=== PATIENT | female | born 1945 | race Caucasian/White ===

== ENCOUNTER → 2016-05-30 | Outpatient (CLI) | payer MEDICARE, BC ==
[~2016-05-30] MED LIST: Gadobutrol 10 mMOL/10 ML SDV IVPUSH STA
--- NOTE | 2016-05-31 15:51 | MR ---
EXAM DATE: 05/30/16 PATIENT'S AGE: 71 Patient: VANITA ESCALANTE Facility: [place], [place] Site . Site : 1945 Study: MRI Head W/ and W/O Cont [id number] 6:12:13 PM Ordering Physician: Rafael Blanco Final Report: Indication: Headache and dizziness. Comparison: CT 05/01/2016. Technique: Multiplanar T1, T2, FLAIR and diffusion-weighted imaging. Post gadolinium T2 weighted sequences. Findings: Motion artifact. Normal brain parenchymal morphology. Few scattered patchy T2/FLAIR signal hyperintensity within the white matter which most likely represent small vessel ischemic changes. No intracranial hemorrhage. No abnormal ventricular dilatation. Intracranial vascular flow voids are preserved. No mass or mass effect. No midline shift. No restricted diffusion to suggest acute ischemia. No susceptibility artifact to suggest hemosiderin of remote hemorrhage. No abnormal enhancement or enhancing lesions. Bilateral orbits are unremarkable. Normal appearing sella. Visualized paranasal sinuses are unremarkable. Small bilateral mastoid effusions. Impression: 1. Motion artifact 2. No acute intracranial abnormality. 3. Normal brain parenchymal morphology. Chronic deep white matter small vessel ischemic changes. 4. No abnormal enhancement or enhancing lesions 5. Small bilateral mastoid effusions Dictated by Gil Anguiano MD @ May 31 2016 8:53AM (Electronic Signature) Report Signed by Proxy and Original Signed Document filed in the Medical Record. [facility]
== END ==
LOC: MW.MRI 16:12
PROVIDERS: ATTEND Family Medicine
DX: R51 Headache (principal); R42 Dizziness and giddiness; H74.8X3 Other specified disorders of middle ear and mastoid, bilateral
CPT/HCPCS: 70553; A9585

== ENCOUNTER 2016-07-26 10:36 | Inpatient (IN) | payer MEDICARE, BC ==
[2016-07-26] MEDS ORDERED: Sodium Chloride 0.9% 1,000 ML IV ONE (10:58)
[2016-07-26] MEDS ORDERED: Levofloxacin/Dextrose 5%-Water 750 MG in Premix Bag 1 BAG IV ONE (10:58)
[2016-07-26] MEDS ORDERED: Sodium Chloride 0.9% 2.5 ML Syringe FLUSH PRN (10:58)
[2016-07-26] MEDS ORDERED: Sodium Chloride 0.9% 10 ML Syringe FLUSH PRN (10:58)
--- NOTE | 2016-07-26 11:16 | EDM.PDOC ---
ED HISTORY OF PRESENT ILLNESS - General Chief Complaint: Respiratory Problem Stated Complaint: DIZZY Time Seen by Provider: 07/26/16 10:55 - History of Present Illness INITIAL COMMENTS - FREE TEXT/NARRATIVE: HISTORY AND PHYSICAL: History of present illness: Patient 71-year-old white female with a concern of fever and cough worse over the last several days she has some upper back pain with this particularly with coffee she denies chest pain denies nausea vomiting denies other concern. Review of systems: As per history of present illness and below otherwise all systems reviewed and negative. Past medical history: As per history of present illness and as reviewed below otherwise noncontributory. Surgical history: As per history of present illness and as reviewed below otherwise noncontributory. Social history: No reported history of drug or alcohol abuse. Family history: As per history of present illness and as reviewed below otherwise noncontributory. Physical exam: HEENT: Atraumatic, normocephalic, pupils reactive, negative for conjunctival pallor or scleral icterus, mucous membranes moist, throat clear, neck supple, nontender, trachea midline. Lungs: Coarse bilaterally slightly diminished breath sounds equal bilaterally, chest nontender. Heart: S1S2, regular, negative for clicks, rubs, or JVD. Abdomen: Soft, nondistended, nontender. Negative for masses or hepatosplenomegaly. Negative for costovertebral tenderness. Pelvis: Stable nontender. Genitourinary: Deferred. Rectal: Deferred. Extremities: Atraumatic, negative for cords or calf pain. Neurovascular unremarkable. Neuro: Awake, alert, oriented. Cranial nerves II through XII unremarkable. Cerebellum unremarkable. Motor and sensory unremarkable throughout. Exam nonfocal. Diagnostics: CBC CMP troponin chest x-ray blood culture x2 lactic acid influenza screen UA urine culture Therapeutics: IV O2 monitor Levaquin 750 mg IV Impression: #1 pneumonitis #2 fever #3 dyspnea Definitive disposition and diagnosis as appropriate pending reevaluation and review of above. - Related Data Allergies/ADRs: Allergies Allergy/AdvReac Type Severity Reaction Status Date / Time cephalexin monohydrate Allergy Vomiting Verified 07/26/16 12:08 [From Keflex] doxycycline Allergy Acid Reflux Verified 07/26/16 12:08 hydrocodone Allergy Vomiting Verified 07/26/16 12:08 ibuprofen Allergy Hives Verified 07/26/16 12:08 levofloxacin Allergy Nausea and Verified 07/26/16 12:08 Vomiting meloxicam Allergy Other Verified 07/26/16 12:08 Penicillins Allergy Tachycardia Verified 07/26/16 12:08 tramadol Allergy Vomiting Verified 07/26/16 12:08 Hydrocodone/acetaminophen Allergy Vomiting Uncoded 05/01/16 05:00 Home Meds: Home Meds Aspirin [Halfprin] 81 mg PO DAILY 12/15/15 [History] Lisinopril/Hydrochlorothiazide [Lisinopril-Hctz 10-12.5 mg Tab] 1 tab PO ACBREAKFAST 12/15/15 [History] Metoprolol Succinate [Toprol XL] 25 mg PO ACBREAKFAST 12/15/15 [History] Tiotropium Br/Olodaterol HCl [Stiolto Respimat Inhal War] 1 inh INH ACBREAKFAST 12/15/15 [History] atorvaSTATin Calcium [Atorvastatin Calcium] 20 mg PO BEDTIME 12/15/15 [History] Glucosamine Sulfate 2KCl [Glucosamine] 1,000 mg PO DAILY 03/18/16 [History] cycloSPORINE [Restasis Multidose] 2 drop EYEBOTH DAILY 03/18/16 [History] Acetaminophen/oxyCODONE [Percocet 325-5 MG] 1 - 2 tab PO Q4H PRN #80 tablet [Rx] Past Medical History HEENT History: Reports: Allergic rhinitis, Other (see below) Other HEENT History: wears glasses, has upper denture Cardiovascular History: Reports: Heart murmur, High cholesterol, Hypertension, Other (see below) (able to walk up 2 flights of stairs. ekg sr, rbbb, rate=78) Respiratory History: Reports: COPD (took inhaler this morning. on HOME OXYGEN at home as needed. Able to sleep in the supine position. Was on steroids for her cough which was discontinued 3 weeks ago.), Other (see below) (cxr : "unremarkable") Other Respiratory History: 40 yr history of smoking QUIT 6 yrs ago Gastrointestinal History: Reports: GERD (controlled with medications.) Genitourinary History: Reports: None CASTING MOLDER History: Reports: None Musculoskeletal History: Reports: Back pain, chronic (lumbar disc disease, lumbar facet joint syndrome, lumbar spondylosis, spondyloisthesis. pain control 04/12.), Fracture, Osteoarthritis, RA, Other (see below) Other Musculoskeletal History: Spinal stenosis, hx of fx right ankle Neurological History: Reports: None Psychiatric History: Reports: None Endocrine/Metabolic History: Reports: None Hematologic History: Reports: None Immunologic History: Reports: None Oncologic (Cancer) History: Reports: None Dermatologic History: Reports: None - Infectious Disease History Infectious Disease History: Reports: Measles - Past Surgical History Head Surgeries/Procedures: Reports: None HEENT Surgical History: Reports: Cataract surgery, Tonsillectomy Cardiovascular Surgical History: Reports: Other (see below) Other Cardiovascular Surgeries/Procedures: Cardiac Catheterization Respiratory Surgical History: Reports: None GI Surgical History: Reports: Cholecystectomy, Other (see below) (parathyroid surgery) Other GI Surgeries/Procedures: Lap Cherrie Female Surgical History: Reports: Hysterectomy, Tubal ligation Endocrine Surgical History: Reports: Parathyroidectomy Neurological Surgical History: Reports: None Musculoskeletal Surgical History: Reports: Knee replacement, ORIF Other Musculoskeletal Surgeries/Procedures:: ORIF Right ARm, partial knee replacement (right) Oncologic Surgical History: Reports: Lumpectomy (breast) Dermatological Surgical History: Reports: None - History Comment History Comment: etoh "rarely" Social & Family History - Family History Family Medical History: Noncontributory - Tobacco Use Smoking Status *Q: Former Smoker (quit in 2009.) Years of Tobacco use: 40 Used Tobacco, but Quit: Yes Month Tobacco Last Used: quit 7 years ago Second Hand Smoke Exposure: No - Caffeine Use Caffeine Use: Reports: Coffee Caffeine Use Comment: 2cups/day - Alcohol Use Days Per Week of Alcohol Use: 0 Number of Drinks Per Day: 0 Total Drinks Per Week: 0 - Recreational Drug Use Recreational Drug Use: No Drug Use in Last 12 Months: No ED ROS GENERAL - Review of Systems Review Of Systems: ROS reveals no pertinent complaints other than HPI. ED EXAM, GENERAL - Physical Exam Exam: See Below (See dictation) Course - Vital Signs Last Recorded V/S: Last Vital Signs Temp 39.2 C H 07/26/16 12:02 Pulse 103 H 07/26/16 12:02 Resp 18 07/26/16 12:02 BP 157/76 H 07/26/16 12:02 Pulse Ox 87 L 07/26/16 12:02 - Orders/Labs/Meds Orders: Active Orders 24 hr Category Date Time Status Cardiac Monitoring [RC] . DIRECTED Care 07/26/16 10:58 Active EKG Documentation Completion [RC] STAT Care 07/26/16 10:58 Active Oxygen Therapy, ED [RC] ASDIRECTED Care 07/26/16 10:58 Active Pulse Oximetry [RC] ASDIRECTED Care 07/26/16 10:58 Active Chest 1V Frontal [CR] Stat Exams 07/26/16 10:58 Taken CULTURE BLOOD [BC] Stat Lab 07/26/16 11:14 Received CULTURE BLOOD [BC] Stat Lab 07/26/16 11:38 Received CULTURE URINE [RM] Stat Lab 07/26/16 10:58 Uncollected INFLUENZA A+B AG SCREEN [RM] Stat Lab 07/26/16 11:16 Uncollected UA W/MICROSCOPIC [URIN] Stat Lab 07/26/16 10:58 Uncollected Sodium Chloride 0.9% [Saline Flush] Med 07/26/16 10:58 Active 10 ml FLUSH ASDIRECTED PRN Sodium Chloride 0.9% [Saline Flush] Med 07/26/16 10:58 Active 2.5 ml FLUSH ASDIRECTED PRN Blood Culture x2 Reflex Set [OM.PC] Stat Oth 07/26/16 10:58 Ordered Saline Lock Insert [OM.PC] Stat Oth 07/26/16 10:58 Ordered Medication Orders Sodium Chloride (Saline Flush) 10 ml FLUSH ASDIRECTED PRN PRN Reason: Keep Vein Open Last Admin: 07/26/16 11:58 Dose: 10 ml Sodium Chloride (Saline Flush) 2.5 ml FLUSH ASDIRECTED PRN PRN Reason: Keep Vein Open Last Admin: 07/26/16 11:58 Dose: 2.5 ml Labs: Laboratory Tests 07/26/16 07/26/16 07/26/16 Range/Units 11:38 11:38 11:38 WBC 18.74 H (4.0-11.0) K/uL RBC 4.59 (4.30-5.90) M/uL Hgb 13.7 (12.0-16.0) g/dL Hct 42.8 (36.0-46.0) % MCV 93.2 (80.0-98.0) fL MCH 29.8 (27.0-32.0) pg MCHC 32.0 (31.0-37.0) g/dL RDW Std Deviation 49.7 (28.0-62.0) fl RDW Coeff of Bean 15 (11.0-15.0) % Plt Count 309 (150-400) K/uL MPV 10.50 (7.40-12.00) fL Neut % (Auto) 78.2 (48.0-80.0) % Lymph % (Auto) 6.5 L (16.0-40.0) % [place] % (Auto) 14.9 (0.0-15.0) % Eos % (Auto) 0.2 (0.0-7.0) % Baso % (Auto) 0.2 (0.0-1.5) % Neut # (Auto) 14.7 H (1.4-5.7) K/uL Lymph # (Auto) 1.2 (0.6-2.4) K/uL [place] # (Auto) 2.8 H (0.0-0.8) K/uL Eos # (Auto) 0.0 (0.0-0.7) K/uL Baso # (Auto) 0.0 (0.0-0.1) K/uL Nucleated RBC % 0.0 /100WBC Nucleated RBCs # 0 K/uL INR 1.01 (0.86-1.11) Lactate 1.3 (0.20-2.00) mmol/L Sodium (136-146) mmol/L Potassium (3.5-5.1) mmol/L Chloride (98-110) mmol/L Carbon Dioxide (21-31) mmol/L BUN (6.0-23.0) mg/dL Creatinine (0.6-1.5) mg/dL Est Cr Clr Drug Dosing mL/min Estimated GFR (MDRD) ml/min Glucose (60-110) mg/dL Calcium (8.8-10.8) mg/dL Total Bilirubin (0.1-1.5) mg/dL AST (5-40) IU/L ALT (8-54) IU/L Alkaline Phosphatase (40-150) Troponin I (0.0-0.29) NG/ML B-Natriuretic Peptide (<100) PG/ML Total Protein (6.0-8.0) g/dL Albumin (3.4-4.8) g/dL Globulin (2.0-3.5) g/dL Albumin/Globulin Ratio (1.3-2.8) 07/26/16 07/26/16 07/26/16 Range/Units 11:38 11:38 11:38 WBC (4.0-11.0) K/uL RBC (4.30-5.90) M/uL Hgb (12.0-16.0) g/dL Hct (36.0-46.0) % MCV (80.0-98.0) fL MCH (27.0-32.0) pg MCHC (31.0-37.0) g/dL RDW Std Deviation (28.0-62.0) fl RDW Coeff of Bean (11.0-15.0) % Plt Count (150-400) K/uL MPV (7.40-12.00) fL Neut % (Auto) (48.0-80.0) % Lymph % (Auto) (16.0-40.0) % [place] % (Auto) (0.0-15.0) % Eos % (Auto) (0.0-7.0) % Baso % (Auto) (0.0-1.5) % Neut # (Auto) (1.4-5.7) K/uL Lymph # (Auto) (0.6-2.4) K/uL [place] # (Auto) (0.0-0.8) K/uL Eos # (Auto) (0.0-0.7) K/uL Baso # (Auto) (0.0-0.1) K/uL Nucleated RBC % /100WBC Nucleated RBCs # K/uL INR (0.86-1.11) Lactate (0.20-2.00) mmol/L Sodium 140 (136-146) mmol/L Potassium 3.6 (3.5-5.1) mmol/L Chloride 104 (98-110) mmol/L Carbon Dioxide 22 (21-31) mmol/L BUN 23 (6.0-23.0) mg/dL Creatinine 1.3 (0.6-1.5) mg/dL Est Cr Clr Drug Dosing 37.48 mL/min Estimated GFR (MDRD) 40.2 ml/min Glucose 119 H (60-110) mg/dL Calcium 8.4 L (8.8-10.8) mg/dL Total Bilirubin 1.3 (0.1-1.5) mg/dL AST 26 (5-40) IU/L ALT 23 (8-54) IU/L Alkaline Phosphatase 132 (40-150) Troponin I < 0.10 (0.0-0.29) NG/ML B-Natriuretic Peptide 166 H (<100) PG/ML Total Protein 8.1 H (6.0-8.0) g/dL Albumin 3.9 (3.4-4.8) g/dL Globulin 4.2 H (2.0-3.5) g/dL Albumin/Globulin Ratio 0.9 L (1.3-2.8) Meds: Medications Generic Name Dose Route Start Last Admin Trade Name Freq PRN Reason Stop Dose Admin Sodium Chloride 10 ml 07/26/16 10:58 07/26/16 11:58 Saline Flush FLUSH 10 ml ASDIRECTED PRN Administration Keep Vein Open Sodium Chloride 2.5 ml 07/26/16 10:58 07/26/16 11:58 Saline Flush FLUSH 2.5 ml ASDIRECTED PRN Administration Keep Vein Open Discontinued Medications Generic Name Dose Route Start Last Admin Trade Name Freq PRN Reason Stop Dose Admin Levofloxacin/Dextrose 750 mg/ 150 mls @ 100 mls/hr 07/26/16 10:58 07/26/16 11 :58 Premix IV 07/26/16 12:27 100 mls/hr ONETIME ONE Administration Sodium Chloride 1,000 mls @ 999 mls/hr 07/26/16 10:58 07/26/16 11:57 Normal Saline IV 07/26/16 11:58 300 mls/hr STAT ONE Administration Ondansetron HCl 4 mg 07/26/16 12:00 07/26/16 12:05 Zofran IVPUSH 07/26/16 12:01 4 mg ONETIME ONE Administration Departure - Departure Time of Disposition: 12:36 Disposition: Admitted As Inpatient 64 Condition: good Clinical Impression: Pneumonia Referrals: Reagan Hall MD [Primary Care Provider] - Forms: ED Department Discharge - My Orders Last 24 Hours: My Active Orders 07/26/16 10:58 Cardiac Monitoring [RC] . DIRECTED EKG Documentation Completion [RC] STAT Oxygen Therapy, ED [RC] ASDIRECTED Pulse Oximetry [RC] ASDIRECTED Chest 1V Frontal [CR] Stat CULTURE URINE [RM] Stat UA W/MICROSCOPIC [URIN] Stat Sodium Chloride 0.9% [Saline Flush] 10 ml FLUSH ASDIRECTED PRN Sodium Chloride 0.9% [Saline Flush] 2.5 ml FLUSH ASDIRECTED PRN Blood Culture x2 Reflex Set [OM.PC] Stat Saline Lock Insert [OM.PC] Stat 07/26/16 11:14 CULTURE BLOOD [BC] Stat 07/26/16 11:16 INFLUENZA A+B AG SCREEN [RM] Stat 07/26/16 11:38 CULTURE BLOOD [BC] Stat - Assessment/Plan Last 24 Hours: My Active Orders 07/26/16 10:58 Cardiac Monitoring [RC] . DIRECTED EKG Documentation Completion [RC] STAT Oxygen Therapy, ED [RC] ASDIRECTED Pulse Oximetry [RC] ASDIRECTED Chest 1V Frontal [CR] Stat CULTURE URINE [RM] Stat UA W/MICROSCOPIC [URIN] Stat Sodium Chloride 0.9% [Saline Flush] 10 ml FLUSH ASDIRECTED PRN Sodium Chloride 0.9% [Saline Flush] 2.5 ml FLUSH ASDIRECTED PRN Blood Culture x2 Reflex Set [OM.PC] Stat Saline Lock Insert [OM.PC] Stat 07/26/16 11:14 CULTURE BLOOD [BC] Stat 07/26/16 11:16 INFLUENZA A+B AG SCREEN [RM] Stat 07/26/16 11:38 CULTURE BLOOD [BC] Stat
[2016-07-26] MEDS ORDERED: Ondansetron 4 MG/2 ML SDV IVPUSH ONE (12:00)
--- NOTE | 2016-07-26 14:18 | CR ---
EXAM DATE: 07/26/16 PATIENT'S AGE: 71 Patient: VANITA ESCALANTE Facility: [place], [place] Site . Site : 1945 Study: XRay Chest [id number] 11:38:41 AM Ordering Physician: Soniya Dsouza Final Report: INDICATION: Pain. Shortness of breath. Technique: AP portable chest x-ray. Findings: Moderate aortic calcification. Heart size normal. Hazy opacity in the right upper lung consistent with developing infiltrate. Pneumonitis in this location should be excluded. Mild diffuse interstitial prominence and opacity in the remainder the right lung and possibly in the left mid and lower lung could be inflammatory but is nonspecific. Left upper lung is clear. Small amount of opacity just lateral to the left lower heart border could be related to overlapping shadows or additional inflammatory opacity. Remainder negative. Dictated by Tha Kim MD @ Jul 26 2016 11:54AM (Electronic Signature) Report Signed by Proxy and Original Signed Document filed in the Medical Record. [facility]
[2016-07-26] MEDS ORDERED: Ondansetron 4 MG/2 ML SDV IVPUSH PRN (14:21)
--- NOTE | 2016-07-26 14:29 | PCM.HP ---
H&P History of Present Illness - General Date of Service: 07/26/16 Admit Problem/Dx: Admission Diagnosis/Problem Admission Diagnosis/Problem Pneumonia Source of Information: Patient, Family ( at bedside) History Limitations: Reports: No limitations - History of Present Illness Initial Comments - Free Text/Narative: This 71 year old female with pmh of HTN, dyslipidemia and COPD presented to the ED with a 3 day history of malaise, cough and fever at home. She reports she has had a mild cough, not productive, sharp pain to R shoulder blade area, nausea, no vomiting, poor appetite, fevers and chills. A sore throat started yesterday, no rhinitis, some L ear congestion/pain, no sinus congestion and no headache. She denies diarrhea or constipation, no black or bloody BMs, no urinary symptoms. She did not receive her flu shot this year. In the ED leukocytosis noted, 18,000. Lactate was normal. BMP WNL. influenza pending, CXR revealed RU lobe developing infiltrate as well as diffuse interstitial prominence and opacity in pollo remainder of pollo right lung and possibly the left mid and lower lung, may be inflammatory but is non -specific. Left upper lung is clear. She was given Levaquin in the ED, tolerated this well with Zofran administration. She was febrile in ED, 102 F with tachycardia and hypoxia. She will be admitted for pneumonia. Upper Back Pain Score (Numeric/FACES): 5 - Related Data Allergies/Adverse Reactions: Allergies Allergy/AdvReac Type Severity Reaction Status Date / Time cephalexin monohydrate Allergy Vomiting Verified 07/26/16 12:08 [From Keflex] doxycycline Allergy Acid Reflux Verified 07/26/16 12:08 hydrocodone Allergy Vomiting Verified 07/26/16 12:08 ibuprofen Allergy Hives Verified 07/26/16 12:08 levofloxacin Allergy Nausea and Verified 07/26/16 12:08 Vomiting meloxicam Allergy Other Verified 07/26/16 12:08 Penicillins Allergy Tachycardia Verified 07/26/16 12:08 tramadol Allergy Vomiting Verified 07/26/16 12:08 Hydrocodone/acetaminophen Allergy Vomiting Uncoded 05/01/16 05:00 Home Medications: Home Meds Aspirin [Halfprin] 81 mg PO DAILY 12/15/15 [History] Lisinopril/Hydrochlorothiazide [Lisinopril-Hctz 10-12.5 mg Tab] 1 tab PO ACBREAKFAST 12/15/15 [History] Metoprolol Succinate [Toprol XL] 25 mg PO ACBREAKFAST 12/15/15 [History] Tiotropium Br/Olodaterol HCl [Stiolto Respimat Inhal [place]] 1 inh INH ACBREAKFAST 12/15/15 [History] atorvaSTATin Calcium [Atorvastatin Calcium] 20 mg PO BEDTIME 12/15/15 [History] Glucosamine Sulfate 2KCl [Glucosamine] 1,000 mg PO DAILY 03/18/16 [History] cycloSPORINE [Restasis Multidose] 2 drop EYEBOTH DAILY 03/18/16 [History] Acetaminophen/oxyCODONE [Percocet 325-5 MG] 1 - 2 tab PO Q4H PRN #80 tablet [Rx] Past Medical History - Past Health History Medical/Surgical History: Denies Medical/Surgical History HEENT History: Reports: Allergic rhinitis, Other (see below) Other HEENT History: wears glasses, has upper denture Cardiovascular History: Reports: Heart murmur, High cholesterol, Hypertension, Other (see below) (able to walk up 2 flights of stairs. ekg sr, rbbb, rate=78) . Denies: Afib, Blood clots/VTE/DVT, TX Respiratory History: Reports: COPD (took inhaler this morning. on HOME OXYGEN at home as needed. Able to sleep in the supine position. Was on steroids for her cough which was discontinued 3 weeks ago.), Other (see below) (cxr : "unremarkable") Other Respiratory History: 40 yr history of smoking QUIT 6 yrs ago Gastrointestinal History: Reports: GERD (controlled with medications.) Genitourinary History: Reports: None. 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 pain control 04/12.), Fracture, Osteoarthritis, RA, Other (see below) Other Musculoskeletal History: Spinal stenosis, hx of fx right ankle Neurological History: Reports: None Psychiatric History: Reports: None Endocrine/Metabolic History: Reports: None. Denies: Diabetes, type II, Hypothyroidism Hematologic History: Reports: None Immunologic History: Reports: None Oncologic (Cancer) History: Reports: None Dermatologic History: Reports: None - Infectious Disease History Infectious Disease History: Reports: Measles - Past Surgical History Head Surgeries/Procedures: Reports: None HEENT Surgical History: Reports: Cataract surgery, Tonsillectomy Cardiovascular Surgical History: Reports: Other (see below) Other Cardiovascular Surgeries/Procedures: Cardiac Catheterization Respiratory Surgical History: Reports: None GI Surgical History: Reports: Cholecystectomy, Other (see below) (parathyroid surgery) Other GI Surgeries/Procedures: Lap Cherrie Female Surgical History: Reports: Hysterectomy, Tubal ligation Endocrine Surgical History: Reports: Parathyroidectomy Neurological Surgical History: Reports: None Musculoskeletal Surgical History: Reports: Knee replacement, ORIF Other Musculoskeletal Surgeries/Procedures:: ORIF Right ARm, partial knee replacement (right) Oncologic Surgical History: Reports: Lumpectomy (breast) Dermatological Surgical History: Reports: None - History Comment History Comment: etoh "rarely" Social & Family History - Family History Family Medical History: Noncontributory - Tobacco Use Smoking Status *Q: Former Smoker (quit in 2009.) Years of Tobacco use: 40 Used Tobacco, but Quit: Yes Month Tobacco Last Used: quit 7 years ago Second Hand Smoke Exposure: No - Caffeine Use Caffeine Use: Reports: Coffee Caffeine Use Comment: 2cups/day - Alcohol Use Days Per Week of Alcohol Use: 0 Number of Drinks Per Day: 0 Total Drinks Per Week: 0 - Recreational Drug Use Recreational Drug Use: No Drug Use in Last 12 Months: No H&P Review of Systems - Review of Systems: Review Of Systems: See Below General: Reports: fever, malaise, weakness, fatigue, decreased appetite HEENT: Reports: ear pain (L ear congestion), sore throat. Denies: headaches, visual changes Pulmonary: Reports: Shortness of Breath, Cough. Denies: Wheezing, Sputum Cardiovascular: Reports: no symptoms. Denies: chest pain, palpitations, dyspnea on exertion, edema Gastrointestinal: Reports: No symptoms. Denies: Abdominal pain, Anorexia, Black stool, Bloody stool, Decreased appetite, Nausea, Vomiting Genitourinary: Reports: no symptoms. Denies: dysuria, frequency, burning Musculoskeletal: Reports: no symptoms Skin: Reports: no symptoms Psychiatric: Reports: no symptoms. Denies: confusion Neurological: Reports: No Symptoms Hematologic/Lymphatic: Reports: no symptoms Immunologic: Reports: no symptoms Exam - Exam Exam: See Below - Vital Signs Vital Signs: Last Vital Signs Temp 102.5 F H 07/26/16 12:02 Pulse 103 H 07/26/16 12:02 Resp 18 07/26/16 12:02 BP 157/76 H 07/26/16 12:02 Pulse Ox 87 L 07/26/16 12:02 Weight: 72.8 kg - Exam General: alert, oriented, cooperative HEENT: Conjunctiva clear, EACs clear, EOMI, Hearing intact, Nares patent, Posterior pharynx clear. No: Mucosa moist & pink (lips dry and cracked, feels thirsty.) Neck: supple, trachea midline, 2+ carotid pulse wo bruit. No: JVD Lungs: Normal respiratory effort, Rales (RU and mid lobe and L lower lobe), Rhonchi. No: Clear to auscultation, Wheezing Cardiovascular: regular rate, regular rhythm, normal S1, normal S2. No: irregular rhythm, systolic murmur Abdomen: normal bowel sounds, soft. No: organomegaly, rigidity, rebound, tenderness Extremities: normal inspection, normal pulses. No: edema, increased warmth Skin: warm, dry, intact Neuro Extensive - Mental Status: alert, oriented x3, normal mood/affect, normal cognition Neuro Extensive - Motor, Sensory, Reflexes: CN II-XII intact, normal gait, normal reflexes Psychiatric: alert, normal affect, normal mood - Patient Data Result Diagrams: 07/26/16 11:38 07/26/16 11:38 *Q Meaningful Use (ADM) - VTE *Q VTE Criteria *Q: - VTE Risk Assess *Q Each Risk Factor Represents 1 Point: Abnormal Pulmonary Function (COPD) Total Score 1 Point Risk Factors: 1 Each Risk Factor Represents 2 Points: Age 60 - 74 Years Total Score 2 Point Risk Factors: 2 Each Risk Factor Represents 3 Points: None Total Score 3 Point Risk Factors: 0 Each Risk Factor Represents 5 Points: None Total Score 5 Point Risk Factors: 0 Venous Thromboembolism Risk Factor Score *Q: 3 - Stroke *Q Stroke Criteria *Q: - AMI *Q AMI Criteria *Q: - Problem List (1) Pneumonia SNOMED Code(s): 004314133 ICD Code: J18.9 - PNEUMONIA, UNSPECIFIED ORGANISM Status: Acute Current Visit: Yes Qualifiers: Pneumonia type: due to unspecified organism Laterality: bilateral Lung location: unspecified part of lung Qualified Code(s): J18.9 - Pneumonia, unspecified organism (2) HTN (hypertension) SNOMED Code(s): 58998617 ICD Code: I10 - ESSENTIAL (PRIMARY) HYPERTENSION Status: Chronic Current Visit: Yes Qualifiers: Hypertension type: essential hypertension Qualified Code(s): I10 - Essential (primary) hypertension (3) Dyslipidemia SNOMED Code(s): 710050382 ICD Code: E78.5 - HYPERLIPIDEMIA, UNSPECIFIED Status: Chronic Current Visit: Yes (4) COPD (chronic obstructive pulmonary disease) SNOMED Code(s): 96057236 ICD Code: J44.9 - CHRONIC OBSTRUCTIVE PULMONARY DISEASE, UNSPECIFIED Status : Chronic Current Visit: Yes Qualifiers: COPD type: unspecified COPD Qualified Code(s): J44.9 - Chronic obstructive pulmonary disease, unspecified (5) Nocturnal oxygen desaturation SNOMED Code(s): 19083804 ICD Code: G47.34 - IDIO SLEEP RELATED NONOBSTRUCTIVE ALVEOLAR HYPOVENTILATION Status: Chronic Current Visit: Yes Problem List Initiated/Reviewed/Updated: Yes Orders Last 24hrs: Active Orders 24 hr Category Date Time Status Oxygen Therapy [RC] PRN Care 07/26/16 14:21 Active Up ad Jess [RC] ASDIRECTED Care 07/26/16 14:21 Active VTE/DVT Education [RC] PER UNIT ROUTINE Care 07/26/16 14:21 Active Vital Signs [RC] Q4H Care 07/26/16 14:21 Active Heart Healthy Diet [DIET] Diet 07/26/16 Dinner Active BASIC METABOLIC PANEL,BMP [CHEM] AM Lab 07/27/16 05:11 Ordered BASIC METABOLIC PANEL,BMP [CHEM] AM Lab 07/28/16 05:11 Ordered BASIC METABOLIC PANEL,BMP [CHEM] AM Lab 07/29/16 05:11 Ordered CBC WITH AUTO DIFF [HEME] AM Lab 07/27/16 05:11 Ordered CBC WITH AUTO DIFF [HEME] AM Lab 07/28/16 05:11 Ordered CBC WITH AUTO DIFF [HEME] AM Lab 07/29/16 05:11 Ordered CULTURE SPUTUM + SMEAR [RM] Stat Lab 07/26/16 14:21 Uncollected Acetaminophen [Tylenol] Med 07/26/16 14:21 Ordered 650 mg PO Q4H PRN Enoxaparin [Lovenox] Med 07/26/16 14:30 Ordered 40 mg SUBCUT DAILY Levofloxacin/Dextrose 5%-Water [Levaquin in D5W 750 MG/ Med 07/27/16 09:00 Ordered 150 ML] 750 mg Premix Bag 1 bag IV DAILY Ondansetron [Zofran] Med 07/26/16 14:21 Ordered 4 mg IVPUSH Q4H PRN Sodium Chloride 0.9% [Normal Saline] 1,000 ml Med 07/26/16 14:30 Ordered IV ASDIRECTED Resuscitation Status Routine Resus Stat 07/26/16 14:21 Ordered Medication Orders Acetaminophen (Tylenol) 650 mg PO Q4H PRN PRN Reason: Pain Enoxaparin Sodium (Lovenox) 40 mg SUBCUT DAILY BISI Levofloxacin/Dextrose 750 mg/ (Premix) 150 mls @ 100 mls/hr IV DAILY BISI Sodium Chloride (Normal Saline) 1,000 mls @ 100 mls/hr IV ASDIRECTED BISI Ondansetron HCl (Zofran) 4 mg IVPUSH Q4H PRN PRN Reason: Nausea Sodium Chloride (Saline Flush) 10 ml FLUSH ASDIRECTED PRN PRN Reason: Keep Vein Open Last Admin: 07/26/16 11:58 Dose: 10 ml Sodium Chloride (Saline Flush) 2.5 ml FLUSH ASDIRECTED PRN PRN Reason: Keep Vein Open Last Admin: 07/26/16 11:58 Dose: 2.5 ml Assessment/Plan Comment:: This 71 year old female admitted with pneumonia, hypoxia 1. Pneumonia: Continue Levaquin. NS 100 overnight due to fevers and slight dehydration. BD pending. UA pending along with influenza and sputum culture. Duonebs and oxygen. Monitor CBC and BMP in am. 2. COPD: Continue home inhalers Stiolto, encourage IS. Uses oxygen at [facility]. 3. HTN: Continue Lisinoprol/HCTZ and Metoprolol. 4. Dyslipidemia: Continue Atorvastatin VTE: Lovenox Dispo: 2-4 days pending improvement.
[2016-07-26] MEDS: Sodium Chloride 0.9% 1,000 ML IV SCH (15:08)
[2016-07-26] MEDS: Acetaminophen 325 MG Tab PO PRN (15:08)
[2016-07-26] MEDS: Enoxaparin 40 MG/0.4 ML Syringe SUBCUT SCH (15:09)
[2016-07-26] MEDS: Albuterol/Ipratropium 3.0-0.5 MG/3 ML Neb Soln NEB SCH ×2 (17:33→21:18)
[2016-07-27] MEDS: Acetaminophen 325 MG Tab PO PRN ×3 (01:30→21:28)
[2016-07-27] MEDS: Sodium Chloride 0.9% 1,000 ML IV SCH ×3 (01:31→21:40)
[2016-07-27] MEDS: Albuterol/Ipratropium 3.0-0.5 MG/3 ML Neb Soln NEB SCH ×7 (01:33→23:31)
[2016-07-27] MEDS ORDERED: Calcium Carbonate 500 MG Tab.Chew PO ONE (07:46)
--- NOTE | 2016-07-27 07:47 | PCM.PN ---
- General Info Date of Service: 07/27/16 Admission Dx/Problem (Free Text): Admission Diagnosis/Problem Admission Diagnosis/Problem Pneumonia Subjective Update: Reports feeling better this morning. Pain to R lung is much better, still having some intermittent pain with deep breathing. No more fevers. No chest pain or SOB. Functional Status: Reports: pain controlled, tolerating diet, ambulating, urinating - Review of Systems General: Reports: No Symptoms. Denies: Fever, Weakness, Fatigue HEENT: Reports: no symptoms. Denies: headaches, sinus congestion, sore throat Pulmonary: Reports: cough. Denies: shortness of breath, sputum, hemoptysis Cardiovascular: Denies: Chest Pain, Palpitations, Edema Gastrointestinal: Reports: No symptoms. Denies: Abdominal pain, Nausea, Vomiting Genitourinary: Reports: no symptoms. Denies: dysuria, frequency, burning Musculoskeletal: Reports: no symptoms Skin: Reports: no symptoms Neurological: Reports: No Symptoms Psychiatric: Reports: no symptoms - Patient Data Vitals - most recent: Last Vital Signs Temp 97.8 F 07/27/16 04:40 Pulse 80 07/27/16 04:40 Resp 20 07/27/16 04:40 BP 105/48 L 07/27/16 04:40 Pulse Ox 96 07/27/16 05:49 Weight - most recent: 72.8 kg I&O - last 24 hours: Intake & Output 07/26/16 07/27/16 07/27/16 22:59 06:59 14:59 Intake Total 100 1640 Output Total 200 600 Balance -100 1040 Lab Results last 24 hrs: Laboratory Results - last 24 hr 07/26/16 07/27/16 07/27/16 Range/Units 14:30 04:53 04:53 WBC 14.69 H (4.0-11.0) K/uL RBC 3.58 L (4.30-5.90) M/uL Hgb 10.4 L (12.0-16.0) g/dL Hct 33.9 L (36.0-46.0) % MCV 94.7 (80.0-98.0) fL MCH 29.1 (27.0-32.0) pg MCHC 30.7 L (31.0-37.0) g/dL RDW Std Deviation 51.4 (28.0-62.0) fl RDW Coeff of Bean 15 (11.0-15.0) % Plt Count 215 (150-400) K/uL MPV 10.40 (7.40-12.00) fL Neut % (Auto) 72.3 (48.0-80.0) % Lymph % (Auto) 15.5 L (16.0-40.0) % [place] % (Auto) 11.2 (0.0-15.0) % Eos % (Auto) 0.8 (0.0-7.0) % Baso % (Auto) 0.2 (0.0-1.5) % Neut # (Auto) 10.6 H (1.4-5.7) K/uL Lymph # (Auto) 2.3 (0.6-2.4) K/uL [place] # (Auto) 1.7 H (0.0-0.8) K/uL Eos # (Auto) 0.1 (0.0-0.7) K/uL Baso # (Auto) 0.0 (0.0-0.1) K/uL Nucleated RBC % 0.0 /100WBC Nucleated RBCs # 0 K/uL Sodium 142 (136-146) mmol/L Potassium 3.7 (3.5-5.1) mmol/L Chloride 110 (98-110) mmol/L Carbon Dioxide 20 L (21-31) mmol/L BUN 22 (6.0-23.0) mg/dL Creatinine 1.0 (0.6-1.5) mg/dL Est Cr Clr Drug Dosing 48.59 mL/min Estimated GFR (MDRD) 54.3 ml/min Glucose 96 (60-110) mg/dL Calcium 7.3 L (8.8-10.8) mg/dL Urine Color YELLOW Urine Appearance CLEAR Urine pH 6.5 (5.0-8.0) Ur Specific [place] 1.010 (1.001-1.035) Urine Protein TRACE (NEGATIVE) mg/dL Urine Glucose (UA) NEGATIVE (NEGATIVE) mg/dL Urine Ketones NEGATIVE (NEGATIVE) mg/dL Urine Occult Blood NEGATIVE (NEGATIVE) Urine Nitrite NEGATIVE (NEGATIVE) Urine Bilirubin NEGATIVE (NEGATIVE) Urine Urobilinogen 0.2 (<2.0) EU/dL Ur Leukocyte Esterase MODERATE (NEGATIVE) Urine RBC 0-1 (0-2/HPF) Urine WBC 4-7 (0-5/HPF) Ur Epithelial Cells FEW (NONE-FEW) Urine Bacteria FEW (NEGATIVE) Vipul Results last 24 hrs: Microbiology 07/26/16 15:25 Influenza Type A Antigen Screen - Final Nasal, Unspecified NEGATIVE INFLUENZA A VIRUS AG Influenza Type B Antigen Screen - Final NEGATIVE INFLUENZA B VIRUS AG Med Orders - Current: Current Medications Acetaminophen (Tylenol) 650 mg PO Q4H PRN PRN Reason: Pain Last Admin: 07/27/16 01:30 Dose: 650 mg Albuterol/Ipratropium (Duoneb 3.0-0.5 Mg/3 Ml) 3 ml NEB Q4HRRT BISI Last Admin: 07/27/16 05:47 Dose: 3 ml Calcium Carbonate/Glycine (Tums) 1,000 mg PO ONETIME ONE Stop: 07/27/16 07:47 Enoxaparin Sodium (Lovenox) 40 mg SUBCUT DAILY BISI Last Admin: 07/26/16 15:09 Dose: 40 mg Levofloxacin/Dextrose 750 mg/ (Premix) 150 mls @ 100 mls/hr IV Q48H BISI Sodium Chloride (Normal Saline) 1,000 mls @ 100 mls/hr IV ASDIRECTED BISI Last Admin: 07/27/16 01:31 Dose: 100 mls/hr Ondansetron HCl (Zofran) 4 mg IVPUSH Q4H PRN PRN Reason: Nausea Sodium Chloride (Saline Flush) 10 ml FLUSH ASDIRECTED PRN PRN Reason: Keep Vein Open Last Admin: 07/26/16 11:58 Dose: 10 ml Sodium Chloride (Saline Flush) 2.5 ml FLUSH ASDIRECTED PRN PRN Reason: Keep Vein Open Last Admin: 07/26/16 11:58 Dose: 2.5 ml Discontinued Medications Levofloxacin/Dextrose 750 mg/ (Premix) 150 mls @ 100 mls/hr IV ONETIME ONE Stop: 07/26/16 12:27 Last Admin: 07/26/16 11:58 Dose: 100 mls/hr Sodium Chloride (Normal Saline) 1,000 mls @ 999 mls/hr IV STAT ONE Stop: 07/26/16 11:58 Last Infusion: 07/26/16 13:30 Dose: 999 mls/hr Ondansetron HCl (Zofran) 4 mg IVPUSH ONETIME ONE Stop: 07/26/16 12:01 Last Admin: 07/26/16 12:05 Dose: 4 mg - Exam Quality Assessment: supplemental oxygen, DVT prophylaxis General: alert, oriented, cooperative HEENT: Pupils equal, Pupils reactive, EOMI, Mucous membr. moist/pink Neck: supple Lungs: Normal respiratory effort, Rhonchi (bibasilar). No: Wheezing Cardiovascular: Regular Rate, Regular Rhythm, Murmurs Abdomen: bowel sounds present, soft, no tenderness, no distension Extremities: no edema, normal pulses, no calf tenderness Neurological: no new focal deficit Psy/Mental Status: alert, normal affect, normal mood - Problem List & Annotations (1) Pneumonia SNOMED Code(s): 609599607 Code(s): J18.9 - PNEUMONIA, UNSPECIFIED ORGANISM Status: Acute Current Visit: Yes Qualifiers: Pneumonia type: due to unspecified organism Laterality: bilateral Lung location: unspecified part of lung Qualified Code(s): J18.9 - Pneumonia, unspecified organism (2) HTN (hypertension) SNOMED Code(s): 69499027 Code(s): I10 - ESSENTIAL (PRIMARY) HYPERTENSION Status: Chronic Current Visit: Yes Qualifiers: Hypertension type: essential hypertension Qualified Code(s): I10 - Essential (primary) hypertension (3) Dyslipidemia SNOMED Code(s): 703964077 Code(s): E78.5 - HYPERLIPIDEMIA, UNSPECIFIED Status: Chronic Current Visit: Yes (4) COPD (chronic obstructive pulmonary disease) SNOMED Code(s): 65541373 Code(s): J44.9 - CHRONIC OBSTRUCTIVE PULMONARY DISEASE, UNSPECIFIED Status : Chronic Current Visit: Yes Qualifiers: COPD type: unspecified COPD Qualified Code(s): J44.9 - Chronic obstructive pulmonary disease, unspecified (5) Nocturnal oxygen desaturation SNOMED Code(s): 67256823 Code(s): G47.34 - IDIO SLEEP RELATED NONOBSTRUCTIVE ALVEOLAR HYPOVENTILATION Status: Chronic Current Visit: Yes - Problem List Review Problem List Initiated/Reviewed/Updated: Yes - My Orders Last 24 Hours: My Active Orders 07/26/16 14:21 Oxygen Therapy [RC] PRN Up ad Jess [RC] ASDIRECTED Vital Signs [RC] Q4H CULTURE SPUTUM + SMEAR [RM] Stat Acetaminophen [Tylenol] 650 mg PO Q4H PRN Ondansetron [Zofran] 4 mg IVPUSH Q4H PRN Resuscitation Status Routine 07/26/16 14:30 Enoxaparin [Lovenox] 40 mg SUBCUT DAILY Sodium Chloride 0.9% [Normal Saline] 1,000 ml IV ASDIRECTED 07/26/16 14:54 IS (RT) [RT Incentive Spirometry] [RC] ASDIRECTED RT Aerosol Therapy [RC] ASDIRECTED 07/26/16 15:00 Telemetry Monitoring [Cardiac Monitoring] [RC] . DIRECTED 07/26/16 18:00 Albuterol/Ipratropium [DuoNeb 3.0-0.5 MG/3 ML] 3 ml NEB Q4HRRT 07/26/16 Dinner Heart Healthy Diet [DIET] 07/27/16 07:46 Calcium Carbonate [Tums] 1,000 mg PO ONETIME ONE 07/28/16 05:11 BASIC METABOLIC PANEL,BMP [CHEM] AM CBC WITH AUTO DIFF [HEME] AM 07/28/16 11:00 Levofloxacin/Dextrose 5%-Water [Levaquin in D5W 750 MG/150 ML] 750 mg Premix Bag 1 bag IV Q48H 07/29/16 05:11 BASIC METABOLIC PANEL,BMP [CHEM] AM CBC WITH AUTO DIFF [HEME] AM - Plan Plan:: This 71 year old female admitted with pneumonia, hypoxia 1. Pneumonia: Leukocytosis improving. Continue Levaquin. NS 100 BC pending. UA neg, influenza neg and sputum culture pending. Duonebs and oxygen. Monitor CBC and BMP in am. 2. COPD: Continue home inhalers Stiolto, encourage IS. Uses oxygen at [facility]. 3. HTN: Continue Lisinoprol/HCTZ and Metoprolol. 4. Dyslipidemia: Continue Atorvastatin VTE: Lovenox Dispo: 2-4 days pending improvement.
[2016-07-27] MEDS: STIOLTO RESPIMAT INH SCH (09:09)
[2016-07-27] MEDS: Metoprolol Succinate 25 MG Tab.ER PO SCH (09:10)
[2016-07-27] MEDS: Aspirin 81 MG Tab.EC PO SCH (09:10)
[2016-07-27] MEDS: Hydrochlorothiazide 12.5 MG Cap PO SCH (09:27)
[2016-07-27] MEDS: Lisinopril 10 MG Tab PO SCH (09:27)
[2016-07-27] MEDS: Enoxaparin 40 MG/0.4 ML Syringe SUBCUT SCH (09:31)
[2016-07-27] MEDS: RESTASIS OPTHALMIC EYEBOTH SCH (09:36)
[2016-07-27] MEDS ORDERED: atorvaSTATin 20 MG Tab PO SCH (21:00)
[2016-07-28] MEDS: Albuterol/Ipratropium 3.0-0.5 MG/3 ML Neb Soln NEB SCH ×3 (03:06→10:23)
[2016-07-28] MEDS: Acetaminophen 325 MG Tab PO PRN (05:58)
[2016-07-28] MEDS: Metoprolol Succinate 25 MG Tab.ER PO SCH (06:47)
[2016-07-28] MEDS: STIOLTO RESPIMAT INH SCH (06:49)
[2016-07-28] MEDS ORDERED: Acetaminophen/oxyCODONE 325-5 MG Tab PO PRN (07:35)
[2016-07-28 07:52] VITALS: BP 172/79
[2016-07-28] MEDS: Enoxaparin 40 MG/0.4 ML Syringe SUBCUT SCH (08:13)
[2016-07-28] MEDS: Hydrochlorothiazide 12.5 MG Cap PO SCH (08:14)
[2016-07-28] MEDS: Lisinopril 10 MG Tab PO SCH (08:14)
[2016-07-28] MEDS: Aspirin 81 MG Tab.EC PO SCH (08:14)
[2016-07-28] MEDS: RESTASIS OPTHALMIC EYEBOTH SCH (08:15)
[2016-07-28] MEDS: Sodium Chloride 0.9% 1,000 ML IV SCH (08:16)
--- NOTE | 2016-07-28 10:32 | PCM.DCSUM1 ---
Discharge Summary - Hospital Course Free Text/Narrative:: by day of discharge the patient had significantly improved. She was afebrile. She was also not having any pain in her back. HPI Initial Comments: the patient was admitted secondary to pneumonia, fever and hypoxia. - Discharge Data Discharge Date: 07/28/16 Discharge Disposition: Home, Self-Care 01 Condition: Good - Discharge Diagnosis/Problem(s) (1) Pneumonia SNOMED Code(s): 406482816 ICD Code: J18.9 - PNEUMONIA, UNSPECIFIED ORGANISM Status: Resolved Priority: High Current Visit: Yes Qualifiers: Pneumonia type: due to unspecified organism Laterality: bilateral Lung location: unspecified part of lung Qualified Code(s): J18.9 - Pneumonia, unspecified organism (2) COPD (chronic obstructive pulmonary disease) SNOMED Code(s): 86560427 ICD Code: J44.9 - CHRONIC OBSTRUCTIVE PULMONARY DISEASE, UNSPECIFIED Status : Chronic Priority: High Current Visit: Yes Qualifiers: COPD type: unspecified COPD Qualified Code(s): J44.9 - Chronic obstructive pulmonary disease, unspecified (3) HTN (hypertension) SNOMED Code(s): 65154500 ICD Code: I10 - ESSENTIAL (PRIMARY) HYPERTENSION Status: Chronic Priority : Medium Current Visit: Yes Qualifiers: Hypertension type: essential hypertension Qualified Code(s): I10 - Essential (primary) hypertension - Patient Summary/Data Hospital Course: The patient is a 71-year-old lady was admitted to the hospital on Jul 26, 2016 secondary to right lower lobe pneumonia. The patient had presented to the emergency department with also a history of COPD and had a three-day history of malaise, cough and fever at home. Patient also had right-sided back pain as well. Chest x-ray which was obtained earlier showed a right upper lobe infiltrate as well as diffuse interstitial prominence and opacity. He was thought to be inflammatory but there was noted to be nonspecific. Patient had been started initially on Levaquin 500 mg IV daily. Patient was noted in the emergency department also to be febrile with a temperature of 102F and she was tachycardic with hypoxia. Following day the patient was evaluated and was noted to be much improved. She was noted to have some pain with deep breathing and had been instructed on the use of the incentive Speranza spirometer. Additionally, the patient was negative for influenza A and B. and a urine culture was mixed ct and blood cultures were also negative. By the day of discharge the patient had improved sufficiently that she felt adequate to return home. Her is with her and can take care of her. The patient's vital signs had remained stable. Her oxygen saturations were 91% however this is likely secondary to her previous diagnosed COPD. The patient is completely asymptomatic. The patient's previously noted leukocytosis had improved her white cell count of 10.8 thousand and the patient's lactate was also normal. The patient had been able to tolerate a diet and was ambulating. I will send the patient home today on Levaquin 500 mg by mouth daily for 10 days and she has been recommended to followup with her primary care physician in 5-7 days. The patient is also been recommended to have activity as tolerated. The patient is also to continue with all her medications as prescribed. - Patient Instructions Diet: Heart Healthy Diet Activity: As Tolerated Driving: May Drive Today Notify Provider of: Fever, Increased Pain - Discharge Plan Home Medications: Home Meds Aspirin [Halfprin] 81 mg PO DAILY 12/15/15 [History] Lisinopril/Hydrochlorothiazide [Lisinopril-Hctz 10-12.5 mg Tab] 1 tab PO ACBREAKFAST 12/15/15 [History] Metoprolol Succinate [Toprol XL] 25 mg PO ACBREAKFAST 12/15/15 [History] Tiotropium Br/Olodaterol HCl [Stiolto Respimat Inhal [place]] 1 inh INH ACBREAKFAST 12/15/15 [History] atorvaSTATin Calcium [Atorvastatin Calcium] 20 mg PO BEDTIME 12/15/15 [History] Glucosamine Sulfate 2KCl [Glucosamine] 1,000 mg PO DAILY 03/18/16 [History] cycloSPORINE [Restasis Multidose] 2 drop EYEBOTH DAILY 03/18/16 [History] Acetaminophen/oxyCODONE [Percocet 325-5 MG] 1 - 2 tab PO Q4H PRN #80 tablet [Rx] Forms: ED Department Discharge Referrals: Reagan Hall MD [Primary Care Provider] - - Discharge Summary/Plan Comment DC Time >30 min.: Yes - General Info Date of Service: 07/28/16 Admission Dx/Problem (Free Text: Admission Diagnosis/Problem Admission Diagnosis/Problem Pneumonia Subjective Update: Reports feeling better this morning. Pain to R lung is much better, still having some intermittent pain with deep breathing. No more fevers. No chest pain or SOB. Functional Status: Reports: pain controlled, tolerating diet, ambulating - Review of Systems General: Reports: No Symptoms HEENT: Reports: no symptoms Pulmonary: Reports: no symptoms Cardiovascular: Reports: No Symptoms Gastrointestinal: Reports: No symptoms Genitourinary: Reports: no symptoms Musculoskeletal: Reports: no symptoms Skin: Reports: no symptoms Neurological: Reports: No Symptoms Psychiatric: Reports: no symptoms - Patient Data Vitals - Most Recent: Last Vital Signs Temp 36.4 C 07/28/16 07:56 Pulse 83 07/28/16 07:56 Resp 20 07/28/16 07:56 BP 172/79 H 07/28/16 08:14 Pulse Ox 91 L 07/28/16 07:56 Weight - Most Recent: 72.8 kg I&O - Last 24 hours: Intake & Output 07/27/16 07/28/16 07/28/16 22:59 06:59 14:59 Intake Total 2511 300 Output Total 1480 900 Balance 1031 -600 Lab Results - Last 24 hrs: Laboratory Results - last 24 hr 07/28/16 07/28/16 Range/Units 05:10 05:10 WBC 10.89 (4.0-11.0) K/uL RBC 3.50 L (4.30-5.90) M/uL Hgb 10.3 L (12.0-16.0) g/dL Hct 32.7 L (36.0-46.0) % MCV 93.4 (80.0-98.0) fL MCH 29.4 (27.0-32.0) pg MCHC 31.5 (31.0-37.0) g/dL RDW Std Deviation 50.4 (28.0-62.0) fl RDW Coeff of Bean 15 (11.0-15.0) % Plt Count 225 (150-400) K/uL MPV 10.50 (7.40-12.00) fL Add Manual Diff YES Neutrophils % (Manual) 57 (48.0-80.0) % Lymphocytes % (Manual) 17 (16.0-40.0) % Monocytes % (Manual) 16 H (0.0-15.0) % Eosinophils % (Manual) 9 H (0.0-7.0) % Basophils % (Manual) 1 (0.0-1.5) % Nucleated RBC % 0.0 /100WBC Absolute Seg Neuts 6.2 Lymphocytes # (Manual) 1.9 Monocytes # (Manual) 1.7 Eosinophils # (Manual) 1.0 Basophils # (Manual) 0 Nucleated RBCs # 0 K/uL Sodium 144 (136-146) mmol/L Potassium 3.6 (3.5-5.1) mmol/L Chloride 112 H (98-110) mmol/L Carbon Dioxide 21 (21-31) mmol/L BUN 18 (6.0-23.0) mg/dL Creatinine 1.0 (0.6-1.5) mg/dL Est Cr Clr Drug Dosing 48.59 mL/min Estimated GFR (MDRD) 54.3 ml/min Glucose 100 (60-110) mg/dL Calcium 7.9 L (8.8-10.8) mg/dL INA Results - Last 24 hrs: Microbiology 07/26/16 14:30 Urine Culture - Final Urine, Clean Catch MIXED CT 10,000-100,000 CFU/ML Med Orders - Current: Current Medications Acetaminophen (Tylenol) 650 mg PO Q4H PRN PRN Reason: Pain Last Admin: 07/28/16 05:58 Dose: 650 mg Albuterol/Ipratropium (Duoneb 3.0-0.5 Mg/3 Ml) 3 ml NEB Q4HRRT [facility] Last Admin: 07/28/16 10:23 Dose: Not Given Aspirin (Halfprin) 81 mg PO DAILY [facility] Last Admin: 07/28/16 08:14 Dose: 81 mg Atorvastatin Calcium (Lipitor) 20 mg PO BEDTIME [facility] Last Admin: 07/27/16 21:28 Dose: 20 mg Enoxaparin Sodium (Lovenox) 40 mg SUBCUT DAILY [facility] Last Admin: 07/28/16 08:13 Dose: 40 mg Hydrochlorothiazide (Hydrochlorothiazide) 12.5 mg PO DAILY [facility] Last Admin: 07/28/16 08:14 Dose: 12.5 mg Levofloxacin/Dextrose 750 mg/ (Premix) 150 mls @ 100 mls/hr IV Q48H [facility] Sodium Chloride (Normal Saline) 1,000 mls @ 100 mls/hr IV ASDIRECTED [facility] Last Admin: 07/28/16 08:16 Dose: 100 mls/hr Lisinopril (Prinivil) 10 mg PO DAILY [facility] Last Admin: 07/28/16 08:14 Dose: 10 mg Metoprolol Succinate (Toprol Xl) 25 mg PO ACBREAKFAST [facility] Last Admin: 07/28/16 06:47 Dose: 25 mg Ondansetron HCl (Zofran) 4 mg IVPUSH Q4H PRN PRN Reason: Nausea Oxycodone/Acetaminophen (Percocet 325-5 Mg) 1 tab PO Q4H PRN PRN Reason: Pain Stiolto Respimat 1 each INH ACBREAKFAST [facility] Last Admin: 07/28/16 06:49 Dose: 1 each Restasis Opthalmic (Drops) 2 each EYEBOTH DAILY [facility] Last Admin: 07/28/16 08:15 Dose: Not Given Sodium Chloride (Saline Flush) 10 ml FLUSH ASDIRECTED PRN PRN Reason: Keep Vein Open Last Admin: 07/26/16 11:58 Dose: 10 ml Sodium Chloride (Saline Flush) 2.5 ml FLUSH ASDIRECTED PRN PRN Reason: Keep Vein Open Last Admin: 07/26/16 11:58 Dose: 2.5 ml Discontinued Medications Calcium Carbonate/Glycine (Tums) 1,000 mg PO ONETIME ONE Stop: 07/27/16 07:47 Last Admin: 07/27/16 09:09 Dose: 1,000 mg Levofloxacin/Dextrose 750 mg/ (Premix) 150 mls @ 100 mls/hr IV ONETIME ONE Stop: 07/26/16 12:27 Last Admin: 07/26/16 11:58 Dose: 100 mls/hr Sodium Chloride (Normal Saline) 1,000 mls @ 999 mls/hr IV STAT ONE Stop: 07/26/16 11:58 Last Infusion: 07/26/16 13:30 Dose: 999 mls/hr Ondansetron HCl (Zofran) 4 mg IVPUSH ONETIME ONE Stop: 07/26/16 12:01 Last Admin: 07/26/16 12:05 Dose: 4 mg - Exam Quality Assessment: Denies: supplemental oxygen General: Reports: alert, oriented, cooperative HEENT: Reports: Pupils equal, Pupils reactive, EOMI Neck: Reports: supple Lungs: Reports: Clear to auscultation, Normal respiratory effort Cardiovascular: Reports: Regular Rate, Regular Rhythm, Murmurs (+2 heart murmur best heard left upper sternal border old) Abdomen: Reports: bowel sounds present, soft, no tenderness, no distension Back Exam: Reports: normal inspection Extremities: Reports: no edema Skin: Reports: warm, dry Neurological: Reports: no new focal deficit Psy/Mental Status: Reports: alert, normal affect, normal mood *Q Meaningful Use (DIS) - VTE *Q VTE Criteria *Q: - Stroke *Q Stroke Criteria *Q: - AMI *Q AMI Criteria *Q:
[2016-07-28] MEDS ORDERED: Levofloxacin/Dextrose 5%-Water 750 MG in Premix Bag 1 BAG IV SCH (11:00)
== END 2016-07-28 12:45 | disposition home or self-care (01) | DRG 195 ==
LOC: MW.ED 10:36 → MW.MS 12:54
PROVIDERS: ADMIT Internal Medicine; ATTEND Internal Medicine
DX: J18.9 Pneumonia, unspecified organism (principal); G47.34 Idiopathic sleep related nonobstructive alveolar hypoventilation; J44.9 Chronic obstructive pulmonary disease, unspecified; I10 Essential (primary) hypertension; Z87.891 Personal history of nicotine dependence; R06.02 Shortness of breath; R05 Cough; R50.9 Fever, unspecified; R53.81 Other malaise; R09.02 Hypoxemia; E78.5 Hyperlipidemia, unspecified; M54.9 Dorsalgia, unspecified; G89.29 Other chronic pain; M19.90 Unspecified osteoarthritis, unspecified site; M06.9 Rheumatoid arthritis, unspecified; Z79.2 Long term (current) use of antibiotics; Z79.82 Long term (current) use of aspirin; Z88.6 Allergy status to analgesic agent; Z88.1 Allergy status to other antibiotic agents; Z88.0 Allergy status to penicillin; Z88.8 Allergy status to other drugs, medicaments and biological substances; Z96.659 Presence of unspecified artificial knee joint
CPT/HCPCS: 36415; 71010; 80053; 83605; 83880; 84484; 85025; 85610; 87040 ×2; 96361; 96365; 96375; 99284; J1956; J2405; J7040; 80048; 81001; 87086; 87804; 93005; 94640; 94664; 99285; A9270-GY; J1650

== ENCOUNTER 2017-01-12 12:15 | Day surgery (SDC) | payer MEDICARE, BC ==
[~2017-01-12 12:15] MED LIST changes: +Betamethasone Acetate/Betamethasone Sod Phosphate 30 MG/5 ML MDV ONE; -Gadobutrol 10 mMOL/10 ML SDV IVPUSH STA; +Iopamidol 408 MG/ML 50 ML SDV ONE; +Lidocaine 2% 5 ML SDV ONE; +Ropivacaine 0.5% 5 MG/ML 30 ML SDV ONE
--- NOTE | 2017-01-12 18:52 | OR ---
SURGEON: Theodora King D.O. DATE OF PROCEDURE: 01/12/2017 OR STAFF PRESENT: 1. Jerry Elizabeth. 2. Torito Zambrano RN. 3. RT Sissy. WOUND CLASSIFICATION: I. PREOPERATIVE DIAGNOSES: 1. Lumbar facet arthropathy. 2. Chronic pain syndrome. POSTOPERATIVE DIAGNOSES: 1. Lumbar facet arthropathy. 2. Chronic pain syndrome. PROCEDURES PERFORMED: 1. Bilateral L3, L4, L5 radiofrequency ablation. 2. Fluoroscopic guidance for needle placement. 3. Local with oral Valium for sedation. JOINTS FOR RADIOFREQUENCY ABLATION: Bilateral L4-5 and L5-S1 zygapophyseal joint. SCREENING QUESTIONS: The patient answered "No" to all the followin. Are you allergic to iodine, Betadine or latex? 2. Do have a bleeding disorder? 3. Are you on any anti-inflammatories or blood thinners? 4. Do you have any current local or systemic infections? RESPONSE TO LAST PROCEDURE: The patient reports greater than 80-90% pain reduction lasting the duration of the previous diagnostic medial branch blocks. MEDICAL NECESSITY: This procedure is being performed in accordance with the national guidelines as written by the [employer], [employer]. Please see medical necessity note attached. DESCRIPTION OF PROCEDURE: The patient had the procedure thoroughly explained including all possible risks, benefits and alternatives. A consent was signed in my clinic indicating understanding and willingness to proceed. The patient presented to [facility] and was escorted to the dressing room to disrobe and change into a hospital gown. Preoperative vital signs were taken. The patient reported taking Valium 10 milligrams at home prior to the procedure. The patient was brought to the procedure room and placed in the prone position on the procedure room table. A pillow was placed under the hips in order to flatten the lumbar lordosis. The back was prepped with ChloraPrep times three and sterilely draped. All personnel in the operating room were dressed in appropriate attire including surgical scrubs, head and shoe covers. This was to ensure sterility while in the treatment room. During the time fluoroscopy was in use all personnel in the operating room wore lead xiao with thyroid collars. Sterile technique was used during the procedure. The skin overlying the target nerves were anesthetized with 2% Lidocaine Preservative-Free in a sterile 27-gauge 1.5 inch needle. The deep tissues were likewise infiltrated. Standard insulated radiofrequency probe needles with 10 millimeter active tips were inserted at the appropriate sites for the left L3, L4 and L5 dorsal ramus nerves and right L3, L4 and L5 dorsal ramus nerves for radiofrequency ablation. Proper placement was determined both fluoroscopically and with test stimulation at each primary site with 50 hertz for sensory and 2 hertz for motor stimulation. No radicular stimulation was identified and no distal motor activity was noted in the lower extremities. Radiofrequency denervation was performed at each site for 60 seconds at 80 degrees centigrade and repeated times two. The patient's nerves were numbed with a mixture of 12 milligrams of Celestone and 3 cubic centimeters of 2% Lidocaine and 3 cubic centimeters of 0.5% Ropivacaine. This was done for patient comfort prior to lesioning; 1 cubic centimeter total was injected at each site. Then the radiofrequency ablation needles were advanced under direct fluoroscopy and viewed in AP and oblique views. Stimulatory patterns were found to be excellent. Each nerve was lesioned twice. The patient tolerated the procedure well and had no complications. The vital signs were stable during and after the procedure. The staff escorted the patient to the recovery room area and the patient was released in stable condition after a brief stay in the recovery room monitored by the nurse. The patient was given both oral and written discharge and follow up instructions. The patient understands and knows to contact the office if there are any questions or concerns in the meantime. The patient has an appointment to follow up in three weeks. PREOPERATIVE PAIN: 8/10. POSTOPERATIVE PAIN: 0/10. FOLLOWUP: Follow up in the pain clinic in 1 month or p.r.n. TIFFANY / KRIS /[id number]
== END 2017-01-12 15:30 | disposition home or self-care (01) ==
LOC: MW.SDS 12:15
PROVIDERS: ATTEND Anesthesiology
DX: G89.4 Chronic pain syndrome (principal); M47.816 Spondylosis without myelopathy or radiculopathy, lumbar region; M48.061 Spinal stenosis, lumbar region without neurogenic claudication; M43.16 Spondylolisthesis, lumbar region; K21.9 Gastro-esophageal reflux disease without esophagitis; M06.9 Rheumatoid arthritis, unspecified; M19.90 Unspecified osteoarthritis, unspecified site; F17.210 Nicotine dependence, cigarettes, uncomplicated; Z88.0 Allergy status to penicillin; Z88.1 Allergy status to other antibiotic agents; Z88.5 Allergy status to narcotic agent; Z88.6 Allergy status to analgesic agent; Z79.82 Long term (current) use of aspirin; Z79.899 Other long term (current) drug therapy; Z98.49 Cataract extraction status, unspecified eye; Z98.51 Tubal ligation status; Z90.710 Acquired absence of both cervix and uterus; Z90.89 Acquired absence of other organs; Z98.890 Other specified postprocedural states
CPT/HCPCS: 64635; 64636; J0702; J2795; Q9966

== ENCOUNTER 2017-01-24 08:36 | Emergency (ER) | payer MEDICARE, BC ==
[2017-01-24] MEDS ORDERED: diphenhydrAMINE 25 MG Cap PO ONE (08:58)
[2017-01-24] MEDS ORDERED: Ketorolac 30 MG/ML SDV IM ONE (08:58)
--- NOTE | 2017-01-24 08:59 | EDM.PDOC ---
ED HPI GENERAL MEDICAL PROBLEM - General Chief Complaint: Upper Extremity Injury/Pain Stated Complaint: LEFT ARM PAIN Time Seen by Provider: 01/24/17 09:45 Source of Information: Reports: Patient History Limitations: Reports: No Limitations - History of Present Illness INITIAL COMMENTS - FREE TEXT/NARRATIVE: History of present illness: []Patient complains of 2 days of left arm pain. She did hit her arm on a door after the pain began which caused a bruise and worsen the pain. She started using an Icelandic em blue cream for pain and broke out in a rash where the cream was placed. Last night she developed a fever. She denies any swelling, numbness, tingling or any trauma. Review of systems: As per history of present illness and below otherwise all systems reviewed and negative. Past medical history: As per history of present illness and as reviewed below otherwise noncontributory. Surgical history: As per history of present illness and as reviewed below otherwise noncontributory. Social history: No reported history of drug or alcohol abuse. Family history: As per history of present illness and as reviewed below otherwise noncontributory. Physical exam: General: Well developed, well nourished in NAD HEENT: Atraumatic, normocephalic, pupils reactive, negative for conjunctival pallor or scleral icterus, mucous membranes moist, throat clear, neck supple, nontender, trachea midline. Lungs: Clear to auscultation, breath sounds equal bilaterally, chest nontender. Heart: S1S2, regular, negative for clicks, rubs, or JVD. Abdomen: Soft, nondistended, nontender. Negative for masses or hepatosplenomegaly. Negative for costovertebral tenderness. Pelvis: Stable nontender. Genitourinary: Deferred. Rectal: Deferred. Extremities: Atraumatic, negative for cords or calf pain. Neurovascular unremarkable. Neuro: Awake, alert, oriented. Cranial nerves II through XII unremarkable. Cerebellum unremarkable. Motor and sensory unremarkable throughout. Exam nonfocal. Diagnostics: []Chest X-ray is negative labs are normal including troponin Therapeutics: []Patient was given pain medicine while in the ED as well as Benadryl for her rash Impression: []Allergic reaction left arm pain Plan: []Tramadol for pain, use Benadryl for the rash ice to arm and rash follow-up with PMD return if symptoms worsen or change Definitive disposition and diagnosis as appropriate pending reevaluation and review of above. Left Upper Arm Pain Score (Numeric/FACES): 10 - Related Data Allergies Allergy/AdvReac Type Severity Reaction Status Date / Time cephalexin monohydrate Allergy Vomiting Verified 01/24/17 08:47 [From Keflex] doxycycline Allergy Acid Reflux Verified 01/24/17 08:47 hydrocodone Allergy Vomiting Verified 01/24/17 08:47 ibuprofen Allergy Hives Verified 01/24/17 08:47 levofloxacin Allergy Nausea and Verified 01/24/17 08:47 Vomiting meloxicam Allergy Other Verified 01/24/17 08:47 Penicillins Allergy Tachycardia Verified 01/24/17 08:47 tramadol Allergy Vomiting Verified 01/24/17 08:47 Hydrocodone/acetaminophen Allergy Vomiting Uncoded 05/01/16 05:00 Home Meds: Home Meds Aspirin [Halfprin] 81 mg PO DAILY 12/15/15 [History] Lisinopril/Hydrochlorothiazide [Lisinopril-Hctz 10-12.5 mg Tab] 1 tab PO ACBREAKFAST 12/15/15 [History] Metoprolol Succinate [Toprol XL] 25 mg PO ACBREAKFAST 12/15/15 [History] Tiotropium Br/Olodaterol HCl [Stiolto Respimat Inhal [place]] 1 inh INH ACBREAKFAST 12/15/15 [History] Glucosamine Sulfate 2KCl [Glucosamine] 1,000 mg PO DAILY 03/18/16 [History] cycloSPORINE [Restasis Multidose] 2 drop EYEBOTH DAILY 03/18/16 [History] traMADol [Ultram] 50 mg PO Q8H PRN #10 tablet 01/24/17 [Rx] Past Medical History - Past Health History Medical/Surgical History: Denies Medical/Surgical History HEENT History: Reports: Allergic Rhinitis Other HEENT History: wears glasses, has upper denture Cardiovascular History: Reports: Heart Murmur, High Cholesterol, Hypertension Respiratory History: Reports: COPD Other Respiratory History: 40 yr history of smoking QUIT 6 yrs ago Gastrointestinal History: Reports: GERD (controlled with medications.) Genitourinary History: Reports: None. 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 Musculoskeletal History: Reports: Back Pain, Chronic, Fracture, Osteoarthritis, RA Other Musculoskeletal History: Spinal stenosis, hx of fx right ankle Neurological History: Reports: None Psychiatric History: Reports: None Endocrine/Metabolic History: Reports: None Hematologic History: Reports: None Immunologic History: Reports: None Oncologic (Cancer) History: Reports: None Dermatologic History: Reports: None - Infectious Disease History Infectious Disease History: Reports: Chicken Pox, Measles, Mumps - Past Surgical History Head Surgeries/Procedures: Reports: None HEENT Surgical History: Reports: Cataract Surgery, Tonsillectomy GI Surgical History: Reports: Cholecystectomy Female Surgical History: Reports: Hysterectomy, Tubal Ligation Endocrine Surgical History: Reports: Parathyroidectomy Neurological Surgical History: Reports: None Musculoskeletal Surgical History: Reports: Knee Replacement, ORIF Oncologic Surgical History: Reports: Lumpectomy Dermatological Surgical History: Reports: None - History Comment History Comment: etoh "rarely" Social & Family History - Family History Family Medical History: Noncontributory - Tobacco Use Smoking Status *Q: Never Smoker Years of Tobacco use: 40 Used Tobacco, but Quit: Yes Month Tobacco Last Used: quit 7 years ago Second Hand Smoke Exposure: No - Caffeine Use Caffeine Use: Reports: Coffee Caffeine Use Comment: 2cups/day - Alcohol Use Days Per Week of Alcohol Use: 0 Number of Drinks Per Day: 0 Total Drinks Per Week: 0 - Recreational Drug Use Recreational Drug Use: No Drug Use in Last 12 Months: No Review of Systems - Review of Systems Review Of Systems: See Below ED EXAM, GENERAL - Physical Exam Exam: See Below (See history of present illness) Course - Vital Signs Last Recorded V/S: Last Vital Signs Temp 36.3 C 01/24/17 08:43 Pulse 87 01/24/17 10:28 Resp 16 01/24/17 10:28 BP 104/64 01/24/17 10:28 Pulse Ox 94 L 01/24/17 10:28 - Orders/Labs/Meds Orders: Active Orders 24 hr Category Date Time Status CULTURE BLOOD [BC] Stat Lab 01/24/17 10:52 Received CULTURE BLOOD [BC] Stat Lab 01/24/17 11:02 Received UA W/MICROSCOPIC [URIN] Stat Lab 01/24/17 11:09 Ordered Sodium Chloride 0.9% [Normal Saline] 1,000 ml Med 01/24/17 11:27 Active IV .Bolus Sodium Chloride 0.9% [Saline Flush] Med 01/24/17 10:08 Active 10 ml FLUSH ASDIRECTED PRN Sodium Chloride 0.9% [Saline Flush] Med 01/24/17 10:08 Active 2.5 ml FLUSH ASDIRECTED PRN Blood Culture x2 Reflex Set [OM.PC] Stat Oth 01/24/17 10:15 Ordered Saline Lock Insert [OM.PC] Stat Oth 01/24/17 10:08 Ordered Medication Orders Sodium Chloride (Normal Saline) 1,000 mls @ 999 mls/hr IV .Bolus ONE Stop: 01/24/17 12:27 Sodium Chloride (Saline Flush) 10 ml FLUSH ASDIRECTED PRN PRN Reason: Keep Vein Open Last Admin: 01/24/17 10:20 Dose: 10 ml Sodium Chloride (Saline Flush) 2.5 ml FLUSH ASDIRECTED PRN PRN Reason: Keep Vein Open Labs: Laboratory Tests 01/24/17 01/24/17 Range/Units 10:24 10:24 WBC 10.18 (4.0-11.0) K/uL RBC 5.03 (4.30-5.90) M/uL Hgb 15.1 (12.0-16.0) g/dL Hct 45.5 (36.0-46.0) % MCV 90.5 (80.0-98.0) fL MCH 30.0 (27.0-32.0) pg MCHC 33.2 (31.0-37.0) g/dL RDW Std Deviation 52.6 (28.0-62.0) fl RDW Coeff of Bean 16 H (11.0-15.0) % Plt Count 244 (150-400) K/uL MPV 10.40 (7.40-12.00) fL Add Manual Diff YES Neutrophils % (Manual) 63 (48.0-80.0) % Band Neutrophils % 5 % Lymphocytes % (Manual) 22 (16.0-40.0) % Monocytes % (Manual) 6 (0.0-15.0) % Eosinophils % (Manual) 3 (0.0-7.0) % Basophils % (Manual) 1 (0.0-1.5) % Nucleated RBC % 0.0 /100WBC Absolute Seg Neuts 6.4 H (1.4-5.7) Band Neutrophils # 0.5 Lymphocytes # (Manual) 2.2 (0.6-2.4) Monocytes # (Manual) 0.6 (0.0-0.8) Eosinophils # (Manual) 0.3 (0.0-0.7) Basophils # (Manual) 0.1 (0.0-0.1) Nucleated RBCs # 0 K/uL Sodium 138 (136-146) mmol/L Potassium 4.3 (3.5-5.1) mmol/L Chloride 107 (98-110) mmol/L Carbon Dioxide 21 (21-31) mmol/L BUN 33 H (6.0-23.0) mg/dL Creatinine 1.4 (0.6-1.5) mg/dL Est Cr Clr Drug Dosing 34.80 mL/min Estimated GFR (MDRD) 36.9 ml/min Glucose 111 H (60-110) mg/dL Calcium 9.3 (8.8-10.8) mg/dL Total Bilirubin 0.7 (0.1-1.5) mg/dL AST 19 (5-40) IU/L ALT 25 (8-54) IU/L Alkaline Phosphatase 108 (40-150) Troponin I < 0.10 (0.0-0.29) NG/ML Total Protein 7.7 (6.0-8.0) g/dL Albumin 3.8 (3.4-4.8) g/dL Globulin 3.9 H (2.0-3.5) g/dL Albumin/Globulin Ratio 1.0 L (1.3-2.8) Meds: Medications Generic Name Dose Route Start Last Admin Trade Name Freq PRN Reason Stop Dose Admin Sodium Chloride 1,000 mls @ 999 mls/hr 01/24/17 11:27 Normal Saline IV 01/24/17 12:27 .Bolus ONE Sodium Chloride 10 ml 01/24/17 10:08 01/24/17 10:20 Saline Flush FLUSH 10 ml ASDIRECTED PRN Administration Keep Vein Open Sodium Chloride 2.5 ml 01/24/17 10:08 Saline Flush FLUSH ASDIRECTED PRN Keep Vein Open Discontinued Medications Generic Name Dose Route Start Last Admin Trade Name Freq PRN Reason Stop Dose Admin Diphenhydramine HCl 25 mg 01/24/17 08:58 01/24/17 09:10 Benadryl PO 01/24/17 08:59 25 mg ONETIME ONE Administration Ketorolac Tromethamine 30 mg 01/24/17 08:58 01/24/17 09:11 Toradol IM 01/24/17 08:59 30 mg ONETIME ONE Administration Morphine Sulfate 2 mg 01/24/17 10:08 01/24/17 10:19 Morphine IVPUSH 01/24/17 10:09 2 mg ONETIME ONE Administration Ondansetron HCl 4 mg 01/24/17 10:08 01/24/17 10:19 Zofran IVPUSH 01/24/17 10:09 4 mg ONETIME ONE Administration Departure - Departure Time of Disposition: 12:09 Disposition: Home, Self-Care 01 Condition: Good Clinical Impression: Left arm pain Allergic reaction caused by a drug Qualifiers: Encounter type: initial encounter Qualified Code(s): T78.40XA - Allergy, unspecified, initial encounter - Discharge Information Prescriptions: traMADol [Ultram] 50 mg PO Q8H PRN #10 tablet PRN Reason: Pain Referrals: Reagan Hall MD [Primary Care Provider] - Forms: ED Department Discharge Additional Instructions: The following information is given to patients seen in the emergency department who are being discharged to home. This information is to outline your options for follow-up care. We provide all patients seen in our emergency department with a follow-up referral. The need for follow-up, as well as the timing and circumstances, are variable depending upon the specifics of your emergency department visit. If you don't have a primary care physician on staff, we will provide you with a referral. We always advise you to contact your personal physician following an emergency department visit to inform them of the circumstance of the visit and for follow-up with them and/or the need for any referrals to a consulting specialist. The emergency department will also refer you to a specialist when appropriate. This referral assures that you have the opportunity for follow-up care with a specialist. All of these measure are taken in an effort to provide you with optimal care, which includes your follow-up. Under all circumstances we always encourage you to contact your private physician who remains a resource for coordinating your care. When calling for follow-up care, please make the office aware that this follow-up is from your recent emergency room visit. If for any reason you are refused follow-up, please contact the [facility] Emergency Department at and asked to speak to the emergency department charge nurse. Take tramadol and Benadryl for pain and itching symptoms, use ice as needed to the arm for pain and itching. Follow-up primary care physician return here immediately if symptoms change or worsen. GELACIO [facility] [address] [place] [id number] - My Orders Last 24 Hours: My Active Orders 01/24/17 10:08 Sodium Chloride 0.9% [Saline Flush] 10 ml FLUSH ASDIRECTED PRN Sodium Chloride 0.9% [Saline Flush] 2.5 ml FLUSH ASDIRECTED PRN Saline Lock Insert [OM.PC] Stat 01/24/17 10:15 Blood Culture x2 Reflex Set [OM.PC] Stat 01/24/17 10:52 CULTURE BLOOD [BC] Stat 01/24/17 11:02 CULTURE BLOOD [BC] Stat 01/24/17 11:09 UA W/MICROSCOPIC [URIN] Stat 01/24/17 11:27 Sodium Chloride 0.9% [Normal Saline] 1,000 ml IV .Bolus - Assessment/Plan Last 24 Hours: My Active Orders 01/24/17 10:08 Sodium Chloride 0.9% [Saline Flush] 10 ml FLUSH ASDIRECTED PRN Sodium Chloride 0.9% [Saline Flush] 2.5 ml FLUSH ASDIRECTED PRN Saline Lock Insert [OM.PC] Stat 01/24/17 10:15 Blood Culture x2 Reflex Set [OM.PC] Stat 01/24/17 10:52 CULTURE BLOOD [BC] Stat 01/24/17 11:02 CULTURE BLOOD [BC] Stat 01/24/17 11:09 UA W/MICROSCOPIC [URIN] Stat 01/24/17 11:27 Sodium Chloride 0.9% [Normal Saline] 1,000 ml IV .Bolus
[2017-01-24] MEDS ORDERED: Ondansetron 4 MG/2 ML SDV IVPUSH ONE (10:08)
[2017-01-24] MEDS ORDERED: Morphine 2 MG/ML Syringe IVPUSH ONE (10:08)
[2017-01-24] MEDS ORDERED: Sodium Chloride 0.9% 2.5 ML Syringe FLUSH PRN (10:08)
[2017-01-24] MEDS ORDERED: Sodium Chloride 0.9% 10 ML Syringe FLUSH PRN (10:08)
--- NOTE | 2017-01-24 10:17 | CR ---
EXAMINATION: Left humerus HISTORY: Pain COMPARISON: None TECHNIQUE: 2 views FINDINGS/IMPRESSION: There is no acute osseous abnormality, dislocation, or fracture. No soft tissue swelling. The radiocapitellar alignment is preserved.
[2017-01-24 11:11] LABS: CHLORIDE,CL 107 mmol/L (98-110); SODIUM,NA 138 mmol/L (136-146)
[2017-01-24] MEDS ORDERED: Sodium Chloride 0.9% 1,000 ML IV ONE ×2 (11:27→12:22)
--- NOTE | 2017-01-24 11:59 | CR ---
EXAMINATION: Two-view chest (PA and Lateral views). HISTORY: Shortness of breath. FINDINGS: The trachea is midline. The cardiomediastinal silhouette is within normal limits. No pulmonary infilt rates, effusions or pneumothorax. Osseous structures appear unremarkable. IMPRESSION: No acute cardiopulmonary process.
[2017-01-24 15:05] VITALS: BP 135/66
== END 2017-01-24 15:00 | disposition home or self-care (01) ==
LOC: MW.ED 08:36
DX: L23.3 Allergic contact dermatitis due to drugs in contact with skin (principal); T39.8X5A Adverse effect of other nonopioid analgesics and antipyretics, not elsewhere classified, initial encounter; B02.9 Zoster without complications; I10 Essential (primary) hypertension; E78.00 Pure hypercholesterolemia, unspecified; Z88.1 Allergy status to other antibiotic agents; Z88.0 Allergy status to penicillin; Z88.5 Allergy status to narcotic agent; Z79.82 Long term (current) use of aspirin; Z79.899 Other long term (current) drug therapy
CPT/HCPCS: 36415; 71020; 73060; 80053; 84484; 85025; 87040; 96361; 96372; 96374; 96375; 99284; A9270; J1885; J2270; J2405; J7040

== ENCOUNTER 2017-07-06 12:54 | Day surgery (SDC) | payer MEDICARE, BC ==
[~2017-07-06 12:54] MED LIST changes: -Lidocaine 2% 5 ML SDV ONE
--- NOTE | 2017-07-06 17:39 | OR ---
SURGEON: Theodora King D.O. DATE OF PROCEDURE: 07/06/2017 OR STAFF PRESENT: 1. Pablo Villanueva RN. 2. Jose Oscar RT. WOUND CLASSIFICATION: I. PREOPERATIVE DIAGNOSES: 1. Lumbar degenerative disk disease. 2. Lumbar radiculopathy. 3. Lumbar spinal stenosis. POSTOPERATIVE DIAGNOSES: 1. Lumbar degenerative disk disease. 2. Lumbar radiculopathy. 3. Lumbar spinal stenosis. PROCEDURES PERFORMED: 1. Right transforaminal epidural steroid injection at S1. 2. Fluoroscopic guidance for needle placement. 3. Local with oral Valium for sedation. SCREENING QUESTIONS: The patient answered "no" to all of the following questions: 1. Are you allergic to iodine, Betadine or latex? 2. Do you have a bleeding disorder? 3. Do you have any joint replacements, heart valve replacements, or a pacemaker? 4. Are you allergic to anti-inflammatories or blood thinners? 5. Do you have any current local or systemic infections? MEDICAL NECESSITY: This is a patient with a history of chronic low back pain and lower extremity radicular pain in the above dermatomal pattern that comes in for the above diagnostic and therapeutic procedure. Pertinent positives and negatives for this suspected disease process along with the diagnostic findings and testing are in the patient's history and physical exam. The most salient feature includes radicular pain in the above dermatomal pattern. The patient had failed attempts at conservative therapy including physical therapy, nonsteroidal anti- inflammatory drugs, and other medications. No contraindications to perform this procedure including medical, no bleeding disorders or infections, no psychological, no antisocial personality disorder or active addiction disorder. There are no work-related issues, and, in general, the patient does not have any history of multiple prior interventions, surgeries or nerve blocks which have failed to return the patient to function. The patient's other symptoms to be treated include numbness, paresthesia, dysesthesia or hypoesthesia referred into the left lower extremity or any weakness in the involved myotome. This procedure is being performed in accordance with national guidelines as written by the [employer] (BHAVESH). DESCRIPTION OF PROCEDURE: The patient had the procedure thoroughly explained including risks, benefits and alternatives. Consent was signed in my clinic indicating understanding and willingness to proceed. The patient presented to [facility] [place] where the patient was escorted to the dressing room to disrobe and change into a hospital gown. Preoperative vital signs were taken and stable. The patient reported that Valium was taken prior to the procedure. The patient was brought to the procedure room and placed in the prone position on the table. A pillow was placed under the abdomen in order to flatten the lumbar lordosis. The back was prepped with ChloraPrep and sterilely draped. All personnel in the operating room were dressed in appropriate attire including surgical scrubs, head and shoe covers. This was to ensure sterility while in the treatment room. During the time fluoroscopy was in use, all personnel in the operating room wore lead xiao with thyroid collars. Sterile technique was used during the procedure. The fluoroscope was placed for the right transforaminal epidural steroid injection at S1. There was no sign of infection at the skin site for needle insertion. The skin was anesthetized with 2% lidocaine with a 27-gauge 1-1/2 inch needle, then a 22-gauge 3-1/2 inch spinal needle, advanced to the right. Under direct fluoroscopic guidance needle position was verified in three views; AP, oblique and lateral, with 0.2 cubic centimeters increments of Isovue-200 dye. No intravascular flow pattern was observed under live fluoroscopy. Then, 12 milligrams of Celestone was slowly injected after negative aspiration of heme, cerebrospinal fluid and no paresthesias were noted. The needle was cleared prior to removal from the skin. No adverse reactions were noted. The patient was brought to the recovery room awake and in good condition by my staff. The patient was monitored and discharge instructions were given after a brief stay in the recovery area. Both oral and written discharge and follow up instructions were given. The patient will follow up in the clinic in 3-4 weeks post procedure to evaluate the efficacy. The patient verbalized understanding including understanding of those signs and symptoms that would require emergency care and knows how to contact the office if there are any problems or questions in the meantime. PREOPERATIVE PAIN: 3 to 9/10. POSTOPERATIVE PAIN: 04/12. FOLLOWUP: Follow up in the Pain Clinic in 3 weeks. HOGELIZABETH / KRIS /[id number] DOREEN
== END 2017-07-06 15:21 ==
LOC: MW.SDS 12:54
PROVIDERS: ATTEND Anesthesiology
DX: M51.16 Intervertebral disc disorders with radiculopathy, lumbar region (principal); M48.061 Spinal stenosis, lumbar region without neurogenic claudication; K21.9 Gastro-esophageal reflux disease without esophagitis; Z88.0 Allergy status to penicillin; Z88.1 Allergy status to other antibiotic agents; Z88.8 Allergy status to other drugs, medicaments and biological substances; Z79.82 Long term (current) use of aspirin; Z79.899 Other long term (current) drug therapy; Z72.0 Tobacco use
CPT/HCPCS: 62323; J0702; J2795; Q9966

== ENCOUNTER 2017-11-18 15:17 | Emergency (ER) | payer MEDICARE, BC ==
--- NOTE | 2017-11-18 15:39 | EDM.PDOC ---
ED HPI GENERAL MEDICAL PROBLEM - General Chief Complaint: General Stated Complaint: RUSHED IN THE BACK Time Seen by Provider: 11/18/17 15:36 Source of Information: Reports: Patient History Limitations: Reports: No Limitations - History of Present Illness INITIAL COMMENTS - FREE TEXT/NARRATIVE: HISTORY AND PHYSICAL: History of present illness: Patient is a 72-year-old female accompanied by her for right-sided weakness. 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 Patient has had right-sided weakness since then but notes that today her weakness is significantly worse to the point where she cannot even walk. Patient has also had difficulty with speech since her surgery. She denies any pain at this time. She begins radiation therapy as well as physical therapy in [place] on Monday. Patient is on palliative care. Patient's neurosurgeon is Dr. Dorantes. Patient's oncologist is Dr. Javier. Review of systems: As per history of present illness and below otherwise all systems reviewed and negative. Past medical history: As per history of present illness and as reviewed below otherwise noncontributory. Surgical history: As per history of present illness and as reviewed below otherwise noncontributory. Social history: No reported history of drug or alcohol abuse. Family history: As per history of present illness and as reviewed below otherwise noncontributory. Physical exam: General: Patient lying comfortably in bed in no acute distress HEENT: Well-healed surgical scar to the left temporal head. Atraumatic, normocephalic, pupils reactive, negative for conjunctival pallor or scleral icterus, mucous membranes moist, throat clear, neck supple, nontender, trachea midline. Lungs: Clear to auscultation, breath sounds equal bilaterally, chest nontender. Heart: S1S2, regular, negative for clicks, rubs, or JVD. Abdomen: Soft, nondistended, nontender. Negative for masses or hepatosplenomegaly. Negative for costovertebral tenderness. Pelvis: Stable nontender. Genitourinary: Deferred. Rectal: Deferred. Extremities: Significant weakness to the left upper and lower extremities. Patient has moderate weakness to the right lower extremity as well. Atraumatic, negative for cords or calf pain. Neurovascular unremarkable. Neuro: Awake, alert, oriented. Cranial nerves II through XII unremarkable. Cerebellum unremarkable. Motor and sensory unremarkable throughout. Exam nonfocal. Notes: Discussed CT results with Dr. Dorantes at . He suggest's an MRI of the lumbar spine to evaluate for metastasis. Discussed with Dr. Palacios in the ER at . Patient will be transferred by ground ambulance. Diagnostics: Head CT Therapeutics: [] Impression: Weakness s/p brain surgery Plan: Discussed with Dr. Palacios in the ER at , Patient will be transferred to . Definitive disposition and diagnosis as appropriate pending reevaluation and review of above. - Related Data Allergies Allergy/AdvReac Type Severity Reaction Status Date / Time cephalexin monohydrate Allergy Vomiting Verified 11/18/17 15:35 [From Keflex] doxycycline Allergy Acid Reflux Verified 11/18/17 15:35 hydrocodone Allergy Vomiting Verified 11/18/17 15:35 ibuprofen Allergy Hives Verified 11/18/17 15:35 levofloxacin Allergy Nausea and Verified 11/18/17 15:35 Vomiting meloxicam Allergy Other Verified 11/18/17 15:35 morphine Allergy Other Verified 11/18/17 15:35 Penicillins Allergy Tachycardia Verified 11/18/17 15:35 tramadol Allergy Vomiting Verified 11/18/17 15:35 Hydrocodone/acetaminophen Allergy Vomiting Uncoded 11/18/17 15:35 Home Meds: Home Meds Tiotropium Br/Olodaterol HCl [Stiolto Respimat Inhal [place]] 1 inh INH ACBREAKFAST 12/15/15 [History] Aspirin 1 tab PO DAILY 11/18/17 [History] Dexamethasone 1 mg PO QID 11/18/17 [History] Docusate Sodium [Colace] 1 cap PO QID 11/18/17 [History] Omeprazole Magnesium [Prilosec Otc] 1 cap PO ASDIRECTED 11/18/17 [History] Tamsulosin [Flomax] 1 tab PO DAILY 11/18/17 [History] diphenhydrAMINE [Benadryl] 0 mg PO ASDIRECTED 11/18/17 [History] Past Medical History - Past Health History Medical/Surgical History: Denies Medical/Surgical History HEENT History: Reports: Allergic Rhinitis Other HEENT History: wears glasses, has upper denture Cardiovascular History: Reports: Heart Murmur, High Cholesterol, Hypertension Respiratory History: Reports: COPD Other Respiratory History: 40 yr history of smoking QUIT 6 yrs ago Gastrointestinal History: Reports: GERD Genitourinary History: Reports: None [employer] History: Reports: None Musculoskeletal History: Reports: Back Pain, Chronic, Fracture, Osteoarthritis, RA Other Musculoskeletal History: Spinal stenosis, hx of fx right ankle Neurological History: Reports: Other (See Below) Other Neuro History: 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 Psychiatric History: Reports: None Endocrine/Metabolic History: Reports: None Hematologic History: Reports: None Immunologic History: Reports: None Oncologic (Cancer) History: Reports: None Dermatologic History: Reports: None - Infectious Disease History Infectious Disease History: Reports: Chicken Pox, Measles, Mumps - Past Surgical History Head Surgeries/Procedures: Reports: None HEENT Surgical History: Reports: Cataract Surgery, Tonsillectomy GI Surgical History: Reports: Cholecystectomy Female Surgical History: Reports: Hysterectomy, Tubal Ligation Endocrine Surgical History: Reports: Parathyroidectomy Neurological Surgical History: Reports: None Musculoskeletal Surgical History: Reports: Knee Replacement, ORIF Oncologic Surgical History: Reports: Lumpectomy Dermatological Surgical History: Reports: None - History Comment History Comment: etoh "rarely" Social & Family History - Family History Family Medical History: Noncontributory - Caffeine Use Caffeine Use: Reports: Coffee Caffeine Use Comment: 2cups/day ED ROS GENERAL - Review of Systems Review Of Systems: ROS reveals no pertinent complaints other than HPI. ED EXAM, GENERAL - Physical Exam Exam: See Below (see dictation) Course - Vital Signs Last Recorded V/S: Last Vital Signs Temp 36.4 C 11/18/17 15:17 Pulse 90 11/18/17 15:17 Resp 18 11/18/17 15:17 BP 141/75 H 11/18/17 15:17 Pulse Ox 95 11/18/17 15:17 - Orders/Labs/Meds Orders: Active Orders 24 hr Category Date Time Status Head wo Cont [CT] Stat Exams 11/18/17 15:36 Taken Departure - Departure Time of Disposition: 17:09 Disposition: DC/Tfer to Hospice - Home 50 Condition: Good Clinical Impression: Weakness, S/P brain surgery - Discharge Information Referrals: PCP,None [Primary Care Provider] - Forms: ED Department Discharge - My Orders Last 24 Hours: My Active Orders 11/18/17 15:36 Head wo Cont [CT] Stat - Assessment/Plan Last 24 Hours: My Active Orders 11/18/17 15:36 Head wo Cont [CT] Stat
[2017-11-18 19:08] VITALS: BP 143/93
--- NOTE | 2017-11-20 12:56 | CT ---
EXAM DATE: 11/18/17 PATIENT'S AGE: 72 Patient: VANITA ESCALANTE Facility: [place], [place] Site . Site : 1945 Study: CT Head WO CONT [id number] 4:07:31 PM Ordering Physician: Doctor Daniels Final Report: INDICATION: PAIN, PT STATES WORSENING WEAKNESS IN BILAT LOWER EXTERMITY AND UPPER RIGHT EXTERMITY. PT HAD RIGHT SIDE BRAIN TUMOR SURGERY 10-19-17. HISTORY: Worsening weakness. Bilateral lower extremity weakness, upper extremity weakness on the right. Recent craniotomy. COMPARISON: CT of the brain without contrast 11/03/2017. TECHNIQUE: CT of the brain. No intravenous contrast. Coronal/sagittal reconstruction images. FINDINGS: There is a hyperdense mass present about the left parietal lobe, which has increased in size from previous. This measures 4.8 x 5.1 cm in AP and transverse dimensions, and there is effacement of cerebral sulci and perilesional edema. This perilesional edema may be vasogenic in nature. The interval increase in size of the mass may indicate residual viable tumor, or hemorrhage related to recent resection. There is shift of the septum pellucidum to the right. This measures approximately 6 mm in dimension, and is new from previous. The perimesencephalic cistern and interpeduncular fossa appear patent. There is no ventriculomegaly. Minimal dilation of the temporal horn of the left lateral ventricle. Trace amount of fluid in the mastoid air cells of the left temporal bone. Pterygoid plates are intact. Debris present within the sphenoidal sinus. Postoperative changes about the left frontal/parietal bones, and in the left temporal bone, stable. IMPRESSION: 1. Hyperdense left parietal lobe mass, with adjacent pre lesional edema and effacement of cerebral sulci, increased in size from 11/03/2017. 2. Shift of the septum pellucidum to the right by approximately 6 mm. This is new from 11/03/2017. 3. The perimesencephalic cistern and interpeduncular fossa remain patent. 4. Neurosurgical consultation is suggested for these findings. 5. Report called to URSUL[facility] Morrell, Emergency Department, 11/18/17, 1634 hours. Dictated by Bob Rutledge MD @ 11/18/2017 4:35:56 PM Please note that all CT scans at this facility use dose modulation, iterative reconstruction, and/or weight-based dosing when appropriate to reduce radiation dose to as low as reasonably achievable. Dictated by: Bob Rutledge MD @ 11/18/2017 16:36:34 (Electronic Signature) Report Signed by Proxy. [facility]
== END 2017-11-18 20:10 | disposition hospice, home (50) ==
LOC: MW.ED 15:17
DX: R53.1 Weakness (principal); I10 Essential (primary) hypertension; E78.00 Pure hypercholesterolemia, unspecified; K21.9 Gastro-esophageal reflux disease without esophagitis; Z79.82 Long term (current) use of aspirin; Z79.899 Other long term (current) drug therapy; Z88.1 Allergy status to other antibiotic agents; Z88.5 Allergy status to narcotic agent; Z88.6 Allergy status to analgesic agent; Z88.8 Allergy status to other drugs, medicaments and biological substances; Z98.890 Other specified postprocedural states
CPT/HCPCS: 70450; 70450-26; 82962; 93005; 99283; 99285-25